=== PATIENT | male | born 1985 | race Caucasian/White ===

== ENCOUNTER 2022-06-04 06:53 | Emergency (ER) | payer OTHER, SELFPAY ==
[~2022-06-04] VITALS: Ht 182.9 cm; Wt 117.0 kg
[2022-06-04] MEDS ORDERED: IBUPROFEN 800 MG TAB PO ONE (09:35)
[2022-06-04] MEDS ORDERED: ACET-897 PO (11:06)
[2022-06-04] MEDS ORDERED: IBUP80TA PO (11:06)
[2022-06-04 11:19] VITALS: BP 138/93
== END 2022-06-04 11:22 | disposition home or self-care (01) ==
LOC: M ED 06:53
DX: M53.3 Sacrococcygeal disorders, not elsewhere classified (principal); V18.0XXA Pedal cycle driver injured in noncollision transport accident in nontraffic accident, initial encounter; Y93.89 Activity, other specified; F17.200 Nicotine dependence, unspecified, uncomplicated

== ENCOUNTER 2023-02-07 08:51 | Emergency (ER) | payer SELFPAY ==
[~2023-02-07] VITALS: Ht 182.9 cm; Wt 118.2 kg
[2023-02-07 08:51] VITALS: BP 172/100; TEMP 97.2; O2SAT 99
[~2023-02-07 08:51] MED LIST: ACET-897 PO; IBUP80TA PO
== END 2023-02-07 10:27 | disposition left against medical advice (07) ==
LOC: M ED 08:51
DX: I10 Essential (primary) hypertension (principal); F17.210 Nicotine dependence, cigarettes, uncomplicated; Z79.1 Long term (current) use of non-steroidal anti-inflammatories (NSAID)